=== PATIENT | male | born 1980 ===

== ENCOUNTER 2019-12-18 17:48 | Inpatient (IN) | payer OTHER ==
[~2019-12-18] VITALS: Ht 188 cm; Wt 78.3 kg
[2019-12-18 16:05] VITALS: BP 123/88
[2019-12-18] MEDS ORDERED: ACETAMINOPHEN 325 MG TABLET PO PRN (18:45)
[2019-12-18] MEDS ORDERED: MAGNESIUM HYDROXIDE SUSPENSION 30 ML UDCUP PO PRN (18:45)
[2019-12-18] MEDS ORDERED: ONDANSETRON HCL 4 MG/2 ML VIAL IVP PRN (18:45)
[2019-12-18] MEDS ORDERED: PANTOPRAZOLE SODIUM 40 MG/VIAL IVP SCH (18:45)
[2019-12-18 20:16] VITALS: BP 102/62
[2019-12-18 20:30] VITALS: BP 131/52
[2019-12-18 23:57] VITALS: BP 132/79
[2019-12-19] MEDS: DOCUSATE SODIUM 100 MG CAPSULE PO SCH ×3 (04:59→21:00)
[2019-12-19 05:00] VITALS: BP 138/77
[2019-12-19 07:30] VITALS: BP 135/80
[2019-12-19 07:56] LABS: EOSINOPHILS % (AUTO) 0.1 % (1.0-6.0); HEMATOCRIT 38.9 % (41-53); HEMOGLOBIN 13.2 g/dL (13.5-17.5); LYMPHOCYTES # (AUTO) 0.7 K/uL (1.0-4.8); LYMPHOCYTES % (AUTO) 11.5 % (22.0-44.0); MEAN CORPUSCULAR HEMOGLOBIN 29.6 pg (26.0-34.0); MEAN CORPUSCULAR HGB CONC 33.9 G/dL (31.0-37.0); MEAN CORPUSCULAR VOLUME 87 fL (80-100); MONOCYTES # (AUTO) 0.2 K/uL (0.1-1.0); MONOCYTES % (AUTO) 3.5 % (2.0-9.0); NEUTROPHILS # (AUTO) 4.9 K/uL (1.8-7.7); NEUTROPHILS % (AUTO) 84.9 % (40.0-70.0); PLATELET COUNT (AUTO) 201 K/uL (150-450); RED BLOOD CELL COUNT(AUTO) 4.45 MIL/uL (4.50-5.90); RED CELL DISTRIBUTION WIDTH 12.9 % (11.5-14.5)
[2019-12-19 08:09] LABS: ANION GAP 11 mmol/L (8-16); CALCIUM, TOTAL 9.4 mg/dL (8.8-10.5); CARBON DIOXIDE 23 mmol/L (22-29); CHLORIDE 101 mmol/L (98-107); CREATININE 0.75 mg/dL (0.60-1.30); GLOMERULAR FILTR. RATE CALC > 60 mL/min (>60); GLUCOSE,RANDOM 131 mg/dL (70-110); POTASSIUM 3.4 mmol/L (3.5-5.1); SODIUM SERUM 135 mmol/L (136-145); UREA NITROGEN, BLOOD 11 mg/dL (7-18)
[2019-12-19] MEDS ORDERED: POTASSIUM CHL 10 MEQ/WATER 50 ML IV PRN (10:00)
[2019-12-19] MEDS ORDERED: POTASSIUM CHLORIDE 20 MEQ ER TABLET PO PRN (10:00)
[2019-12-19] MEDS ORDERED: ONDANSETRON HCL 4 MG TABLET PO PRN (10:15)
[2019-12-19 11:00] VITALS: BP 134/75
[2019-12-19] MEDS: PANTOPRAZOLE SODIUM 40 MG DR TABLET PO SCH (12:07)
[2019-12-19 15:30] VITALS: BP 135/76
[2019-12-19 19:31] VITALS: BP 142/81
[2019-12-19 23:35] VITALS: BP 145/83
[2019-12-20 04:30] VITALS: BP 133/78
[2019-12-20 07:43] VITALS: BP 139/77
[2019-12-20] MEDS: PANTOPRAZOLE SODIUM 40 MG DR TABLET PO SCH (08:38)
[2019-12-20] MEDS: DOCUSATE SODIUM 100 MG CAPSULE PO SCH (08:38)
[2019-12-20 11:28] VITALS: BP 138/87
== END 2019-12-20 13:22 | disposition home or self-care (01) | DRG 395 ==
LOC: 5S 18:42
PROVIDERS: ADMIT Internal Medicine; ATTEND Internal Medicine
DX: T18.8XXA Foreign body in other parts of alimentary tract, initial encounter (principal); T40.1X1A Poisoning by heroin, accidental (unintentional), initial encounter; F19.10 Other psychoactive substance abuse, uncomplicated; F17.210 Nicotine dependence, cigarettes, uncomplicated; R00.1 Bradycardia, unspecified; F11.10 Opioid abuse, uncomplicated; Y92.89 Other specified places as the place of occurrence of the external cause; Y93.89 Activity, other specified; Y99.8 Other external cause status
CPT/HCPCS: 74018; 74019; Q0162; 36415-L1; 36415-TC